=== PATIENT | male | born 1955 | race Caucasian/White ===

== ENCOUNTER 2017-02-27 19:22 | Emergency (ER) | payer BC, OTHER ==
[~2017-02-27] VITALS: Ht 182.9 cm; Wt 71.1 kg
[~2017-02-27 19:22] MED LIST: ASPI325T PO; ATEN-100 PO; CARA1SUS3 PO; LISI10TA PO; PREV30CA36 PO; SIMV5TAB32 PO
[2017-02-27 19:27] VITALS: BP 133/89; PULSE 90; RESP 16; TEMP 98.1; O2SAT 96
[2017-02-27 19:49] VITALS: BP 125/74; PULSE 93; RESP 18; TEMP 98.1; O2SAT 98
[2017-02-27] MEDS ORDERED: ZOCO5TAB PO (19:49)
[2017-02-27] MEDS ORDERED: ATEN50TA PO (19:49)
[2017-02-27] MEDS ORDERED: ASPI325T PO (19:49)
[2017-02-27] MEDS ORDERED: OMEP20TA PO (19:49)
--- NOTE | 2017-02-27 20:14 | PD ---
HPI Chief Complaint: Cardiac Complaint Time Seen by Provider: 20:10 Travel History International Travel<30 days: No Contact w/Intl Traveler<30days: No Traveled to known affect area: No History of Present Illness HPI The patient is a 61-year-old male that has a history of occasional intermittent fibrillation. He states it has been 5 years since he had atrial fibrillation. It started last night, about 20 hours ago. He does not drink alcohol significantly and does not smoke. He has been on the go and losing sleep lately. He is a [employer] patient of Dr. Moon. The patient states that 5 years ago he had atrial fibrillation that lasted a few hours and they gave him "a pill" and a 1 away and he went home. Unfortunately this atrial fibrillation has lasted longer. He denies any chest pain, shortness of breath, syncope or near syncopal episodes. 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 [facility] Past Medical History Atrial Fibrillation: Yes Heart Rhythm Problems: Yes Cardiovascular Problems: Yes High Cholesterol: Yes Diminished Hearing: No Hypertension: Yes Tetanus Vaccination: Unknown Influenza Vaccination: Yes ?: Not Past Surgical History Abdominal Surgery: Yes (RIGHT INGUINAL HERNIA) Other Surgery: Yes (NOSE) Social History Alcohol Use: No Tobacco Use: No Substance Use: No Allergies-Medications (Allergen,Severity, Reaction): Coded Allergies: No Known Allergies (Verified , 02/27/17) Reported Meds & Prescriptions Reported Meds & Active Scripts Active Reported Aspirin 325 Mg Tab 325 Mg PO DAILY Omeprazole 20 Mg Tab 20 Mg PO DAILY Zocor (Simvastatin) 5 Mg Tab 5 Mg PO DAILY Atenolol 50 Mg Tab 50 Mg PO BID Review of Systems Except as stated in HPI: all other systems reviewed are Neg Physical Exam Narrative GENERAL: The patient is alert, oriented 3 in no apparent distress. His vital signs show normal on the repeat vital signs. SKIN: Focused skin assessment warm/dry. HEAD: Atraumatic. Normocephalic. EYES: Pupils equal and round. No scleral icterus. No injection or drainage. ENT: No nasal bleeding or discharge. Mucous membranes pink and moist. NECK: Trachea midline. No JVD. CARDIOVASCULAR: Regular rate and rhythm. No murmur appreciated. RESPIRATORY: No accessory muscle use. Clear to auscultation. Breath sounds equal bilaterally. GASTROINTESTINAL: Abdomen soft, non-tender, nondistended. Hepatic and splenic margins not palpable. MUSCULOSKELETAL: No obvious deformities. No clubbing. No cyanosis. No edema. NEUROLOGICAL: Awake and alert. No obvious cranial nerve deficits. Motor grossly within normal limits. Normal speech. PSYCHIATRIC: Appropriate mood and affect; insight and judgment normal. Data Data Last Documented VS Vital Signs Date Time Temp Pulse Resp B/P Pulse Ox O2 Delivery O2 Flow Rate FiO2 02/27/17 20:22 133/79 140/87 02/27/17 20:17 98 Room Air 02/27/17 20:17 18 02/27/17 19:49 98.1 93 Orders Diltiazem (Cardizem) (02/27/17 20:15) Electrocardiogram (02/27/17 20:15) Ckmb (Isoenzyme) Profile (02/27/17 20:15) Complete Blood Count With Diff (02/27/17 20:15) Comprehensive Metabolic Panel (02/27/17 20:15) Magnesium (Mg) (02/27/17 20:15) Prothrombin Time / Inr (Pt) (02/27/17 20:15) Act Partial Throm Time (Ptt) (02/27/17 20:15) Troponin I (02/27/17 20:15) Ecg Monitoring (02/27/17 20:15) Bilateral Bp Monitoring (02/27/17 20:15) Iv Access Insert/Monitor (02/27/17 20:15) Oximetry (02/27/17 20:15) Oxygen Administration (02/27/17 20:15) Sodium Chloride 0.9% Flush (Ns Flush) (02/27/17 20:15) Chest, Pa & Lat (02/27/17 20:15) CKMB (02/27/17 20:15) CKMB% (02/27/17 20:15) Propafenone (Rythmol) (02/27/17 21:30) Aspirin (Aspirin) (02/27/17 21:45) Labs Laboratory Tests Test 02/27/17 20:15 White Blood Count 8.0 TH/MM3 Red Blood Count 4.86 MIL/MM3 Hemoglobin 14.6 GM/DL Hematocrit 43.3 % Mean Corpuscular Volume 89.0 FL Mean Corpuscular Hemoglobin 30.1 PG Mean Corpuscular Hemoglobin 33.8 % Concent Red Cell Distribution Width 13.5 % Platelet Count 334 TH/MM3 Mean Platelet Volume 9.0 FL Neutrophils (%) (Auto) 68.2 % Lymphocytes (%) (Auto) 22.0 % Monocytes (%) (Auto) 7.5 % Eosinophils (%) (Auto) 1.7 % Basophils (%) (Auto) 0.6 % Neutrophils # (Auto) 5.5 TH/MM3 Lymphocytes # (Auto) 1.8 TH/MM3 Monocytes # (Auto) 0.6 TH/MM3 Eosinophils # (Auto) 0.1 TH/MM3 Basophils # (Auto) 0.0 TH/MM3 CBC Comment DIFF FINAL Differential Comment Prothrombin Time 11.1 SEC Prothromb Time International 1.0 RATIO Ratio Activated Partial 28.1 SEC Thromboplast Time Sodium Level 141 MEQ/L Potassium Level 4.0 MEQ/L Chloride Level 105 MEQ/L Carbon Dioxide Level 28.6 MEQ/L Anion Gap 7 MEQ/L Blood Urea Nitrogen 17 MG/DL Creatinine 0.88 MG/DL Estimat Glomerular Filtration 88 ML/MIN Rate Random Glucose 109 MG/DL Calcium Level 9.0 MG/DL Magnesium Level 2.0 MG/DL Total Bilirubin 0.5 MG/DL Aspartate Amino Transf 23 U/L (AST/SGOT) Alanine Aminotransferase 31 U/L (ALT/SGPT) Alkaline Phosphatase 59 U/L Total Creatine Kinase 112 U/L Creatine Kinase MB 2.3 NG/ML Troponin I LESS THAN 0.02 NG/ML Total Protein 7.2 GM/DL Albumin 3.7 GM/DL MDM Medical Decision Making Medical Screen Exam Complete: Yes Emergency Medical Condition: Yes Medical Record Reviewed: Yes Interpretation(s) The CBC is normal. EKG shows atrial fibrillation with a controlled rate of 89 and no acute change. The coagulation profile is normal. The complete metabolic profile shows a GFR of 88 but is otherwise normal. The cardiac enzymes are normal. Differential Diagnosis Atrial fibrillation, acute coronary syndrome, electrolyte disorder, hypo-/ hyperglycemia, Narrative Course I discussed the patient with Dr. Reid, he states the patient will be adequately anticoagulated on aspirin alone. His INR is 1.0. Dr. Reid of follow-up with the patient tomorrow in his office. He will be prescribed Rythmol 150 mg twice daily and given the first dose here in emergency department. The rate on the atrial fibrillation is controlled with the atenolol. Diagnosis Primary Impression: Atrial fibrillation Additional Instructions: As we discussed, rest and fluids are important. Take an aspirin 325 mg daily and take the Rythmol 150 mg twice daily and follow-up in Dr. Reid's office tomorrow. Call his office tomorrow morning to set up an appointment. Med/Other Pt SpecificInfo: Prescription(s) given Scripts Propafenone 150 Mg [id number] Mg PO q 12h #20 TAB Ref 0 Prov:Kanu Sanchez MD 02/27/17 Disposition: 01 DISCHARGE HOME Condition: Stable Kanu Sanchez MD Feb 27, 2017 20:14
[2017-02-27] MEDS ORDERED: DILTIAZEM HCL 60 MG TAB PO ONE (20:15)
[2017-02-27] MEDS ORDERED: SODIUM CHLORIDE 0.9% FLUSH 10 ML FLUSH IVF PRN (20:15)
[2017-02-27 20:17] VITALS: RESP 18; O2SAT 98
[2017-02-27 20:22] VITALS: BP_SYST 133; BP_SYST 140; BP_DIAS 79; BP_DIAS 87
[2017-02-27 20:29] LABS: AUTOMATED NEUTROPHIL # 5.5 TH/MM3 (1.8-7.7); BASOPHIL % 0.6 % (0.0-2.0); EOSINOPHIL # 0.1 TH/MM3 (0-0.4); EOSINOPHIL % 1.7 % (0.0-4.0); HEMATOCRIT 43.3 % (39.0-51.0); HEMO FLAGS DIFF FINAL; LYMPHOCYTE # 1.8 TH/MM3 (1.0-4.8); MEAN CORPUSCULAR HEMOGLOBIN 30.1 PG (27.0-34.0); MEAN CORPUSCULAR HGB CONC 33.8 % (32.0-36.0); MONO % 7.5 % (0.0-8.0); NEUT % 68.2 % (16.0-70.0); PLATELET COUNT 334 TH/MM3 (150-450); RED BLOOD COUNT 4.86 MIL/MM3 (4.50-5.90); RED CELL DISTRIBUTION WIDTH 13.5 % (11.6-17.2)
[2017-02-27 20:42] LABS: CHLORIDE 105 MEQ/L (98-107); SODIUM (NA) 141 MEQ/L (136-145)
[2017-02-27 20:47] LABS: ANION GAP 7 MEQ/L (5-15); APTT (PATIENT) 28.1 SEC (24.3-30.1); BICARBONATE 28.6 MEQ/L (21.0-32.0); BLOOD UREA NITROGEN 17 MG/DL (7-18); PROTHROMBIN TIME - PATIENT 11.1 SEC (9.8-11.6)
[2017-02-27 20:49] LABS: ALT (GPT) 31 U/L (12-78)
[2017-02-27 20:50] LABS: AST (GOT) 23 U/L (15-37); GLOMERULAR FILTRATION RATE 88 ML/MIN (>89)
[2017-02-27 20:51] LABS: TOTAL BILIRUBIN ADULT 0.5 MG/DL (0.2-1.0)
[2017-02-27 20:52] LABS: ALKALINE PHOSPHATASE 59 U/L (45-117); CREATINE KINASE 112 U/L (39-308)
--- NOTE | 2017-02-27 20:52 | RADHPO ---
EXAM DATE/TIME: 02/27/2017 20:41 [facility] COMPARISON: No previous studies available for comparison. INDICATIONS : Chest pain. MEDICAL HISTORY : Hypertension. A-fib SURGICAL HISTORY : None. ENCOUNTER: Initial ACUITY: 1 day PAIN SCORE: 3/10 LOCATION: Center of chest FINDINGS: PA and lateral views of the chest demonstrate the lungs to be symmetrically aerated without evidence of mass, infiltrate or effusion. The cardiomediastinal contours are unremarkable. Osseous structure s are intact. CONCLUSION: No evidence of acute cardiopulmonary disease. Aidan Kapoor MD on February 27, 2017 at 20:51 Board Certified Radiologist. This report was verified electronically.
[2017-02-27 21:00] VITALS: BP 128/72; PULSE 89; RESP 18; O2SAT 98
[2017-02-27 21:05] LABS: CKMB 2.3 NG/ML (0.5-3.6)
[2017-02-27] MEDS ORDERED: PROPAFENONE HCL 150 MG TAB PO ONE (21:30)
[2017-02-27] MEDS ORDERED: PROP150T PO (21:39)
[2017-02-27] MEDS ORDERED: ASPIRIN 325 MG TAB PO ONE (21:45)
[2017-02-27 22:05] VITALS: BP 124/74; PULSE 88; RESP 18; O2SAT 98
--- NOTE | 2017-02-28 06:56 | EKG ---
Date Performed: 02/27/2017 Time Performed: 19:32:52 PTAGE: 61 years EKG: Atrial fibrillation Possible inferior infarct - age undetermined Abnormal ECG COMPARED TO P RIOR ELECTROCARDIOGRAM, Atrial fibrillation appears new. PREVIOUS TRACING : 09/17/2011 10.16 DOCTOR: Bill Rogers Interpretating Date/Time 02/28/2017 06:54:43
== END 2017-02-27 22:08 | disposition home or self-care (01) ==
LOC: PHED 19:22
DX: I48.91 Unspecified atrial fibrillation (principal); E78.00 Pure hypercholesterolemia, unspecified; I10 Essential (primary) hypertension; R94.31 Abnormal electrocardiogram [ECG] [EKG]
CPT/HCPCS: 71020; 80053; 82550; 82552; 83735; 84484; 85025; 85610; 85730; 93005

== ENCOUNTER 2017-12-18 11:00 | Emergency (ER) | payer BC, OTHER ==
[~2017-12-18] VITALS: Ht 182.9 cm; Wt 74.0 kg
[~2017-12-18 11:00] MED LIST changes: +ASPI-183 PO; -ASPI325T PO; -ATEN-100 PO; +ATEN50TA PO; -CARA1SUS3 PO; +DICL1GEL7 TOPICAL; -LISI10TA PO; +MELO15TA20 PO; +MOBI15TA PO; +OMEP20TA93 PO; -PREV30CA36 PO; +PROP150T PO; -SIMV5TAB32 PO; +ZOCO5TAB PO
[2017-12-18 11:05] VITALS: BP 163/76; PULSE 64; RESP 16; TEMP 97.9; O2SAT 99
[2017-12-18 11:31] LABS: BLOOD, URINE LARGE (NEG); GLUCOSE,URINE NEG (NEG); KETONE, URINE 15 mg/dL (NEG); NITRITE,URINE POS (NEG); PH, URINE 6.5 (5.0-8.5); URINE LEUKOCYTE ESTERASE MOD (NEG)
[2017-12-18 11:36] LABS: BILIRUBIN, URINE NEG (NEG)
[2017-12-18] MEDS ORDERED: SODIUM CHLOR 0.9% 1000 ML INJ 1,000 ML IV ONE (11:37)
[2017-12-18] MEDS ORDERED: SODIUM CHLORIDE 0.9% FLUSH 10 ML FLUSH IVF PRN (11:45)
[2017-12-18 11:49] LABS: URINE COLOR RED (YELLW/STRAW)
[2017-12-18 11:50] LABS: BACTERIA, URINE FEW /hpf; RBC, URINE INNUM /hpf (0-3); SQUAMOUS EPITHELIAL CELL URINE 0-1 /hpf (0-5)
[2017-12-18 11:52] LABS: AUTOMATED NEUTROPHIL # 3.5 TH/MM3 (1.8-7.7); BASOPHIL # 0.1 TH/MM3 (0-0.2); BASOPHIL % 1.8 % (0.0-2.0); EOSINOPHIL # 0.2 TH/MM3 (0-0.4); EOSINOPHIL % 3.3 % (0.0-4.0); HEMATOCRIT 42.9 % (39.0-51.0); HEMOGLOBIN 14.5 GM/DL (13.0-17.0); LYMPH % 18.9 % (9.0-44.0); MEAN CELL VOLUME 90.5 FL (80.0-100.0); MEAN CORPUSCULAR HEMOGLOBIN 30.5 PG (27.0-34.0); MEAN CORPUSCULAR HGB CONC 33.7 % (32.0-36.0); MEAN PLATELET VOLUME 8.4 FL (7.0-11.0); MONO % 8.5 % (0.0-8.0); MONOCYTE # 0.5 TH/MM3 (0-0.9); NEUT % 67.5 % (16.0-70.0); PLATELET COUNT 215 TH/MM3 (150-450); RED BLOOD COUNT 4.74 MIL/MM3 (4.50-5.90); RED CELL DISTRIBUTION WIDTH 12.9 % (11.6-17.2); WHITE BLOOD COUNT 5.3 TH/MM3 (4.0-11.0)
--- NOTE | 2017-12-18 12:26 | PD ---
HPI Chief Complaint: Complaint Time Seen by Provider: 11:31 Travel History International Travel<30 days: No Contact w/Intl Traveler<30days: No Traveled to known affect area: No History of Present Illness HPI 62-year-old male came to the emergency room with history of right flank pain and hematuria that has been going on for past 3 days. Patient says that the hematuria is progressively worsening. Today it was bright red urine. He is able to evacuate his bladder. No history of dysuria. He does have history of kidney stones many years ago. No history of fever or chills. No history of nausea vomiting. Patient currently appears to be comfortable. Vital signs were stable. He is not on any blood thinners. [facility] Past Medical History Narrative Medical Most of his past medical, surgical, social and family history reviewed from the nursing note. Atrial Fibrillation: Yes Heart Rhythm Problems: Yes Cardiovascular Problems: Yes High Cholesterol: Yes Diminished Hearing: No Hypertension: Yes Kidney Stones: Yes Tetanus Vaccination: < 5 Years Influenza Vaccination: Yes Past Surgical History Abdominal Surgery: Yes (RIGHT INGUINAL HERNIA) Tonsillectomy: Yes Other Surgery: Yes (NOSE) Social History Alcohol Use: No Tobacco Use: No Substance Use: No Allergies-Medications (Allergen,Severity, Reaction): Coded Allergies: No Known Allergies (Verified Adverse Reaction, Unknown, 12/18/17) Comments No known drug allergies. Reported Meds & Prescriptions Reported Meds & Active Scripts Active Macrobid (Nitrofurantoin Monoh/Nitrofur Macro) 100 Mg Cap 100 Mg PO BID 10 Days Propafenone (Propafenone HCl) 150 Mg Tab 150 Mg PO Q 12H Reported Aspirin 325 Mg Tab 325 Mg PO DAILY Zocor (Simvastatin) 5 Mg Tab 5 Mg PO DAILY Atenolol 50 Mg Tab 50 Mg PO BID Narrative Medication List of his home medications reviewed from the nursing note. Review of Systems Except as stated in HPI: all other systems reviewed are Neg Genitourinary: Positive: Hematuria, Flank Pain Physical Exam Narrative GENERAL: Awake, alert, no obvious distress SKIN: Focused skin assessment warm/dry. HEAD: Atraumatic. Normocephalic. EYES: Pupils equal and round. No scleral icterus. No injection or drainage. ENT: No nasal bleeding or discharge. Mucous membranes pink and moist. NECK: Trachea midline. No JVD. CARDIOVASCULAR: Regular rate and rhythm. No murmur appreciated. RESPIRATORY: No accessory muscle use. Clear to auscultation. Breath sounds equal bilaterally. GASTROINTESTINAL: Abdomen soft, non-tender, nondistended. Hepatic and splenic margins not palpable. MUSCULOSKELETAL: No obvious deformities. No clubbing. No cyanosis. No edema. NEUROLOGICAL: Awake and alert. No obvious cranial nerve deficits. Motor grossly within normal limits. Normal speech. PSYCHIATRIC: Appropriate mood and affect; insight and judgment normal. Data Data Last Documented VS Orders Orders Urinalysis - C+S If Indicated (12/18/17 11:07) Complete Blood Count With Diff (12/18/17 11:37) Basic Metabolic Panel (Bmp) (12/18/17 11:37) Ct Abd/Pel W/O Iv Contrast (12/18/17 11:37) Ecg Monitoring (12/18/17 11:37) Iv Access Insert/Monitor (12/18/17 11:37) Sodium Chloride 0.9% Flush (Ns Flush) (12/18/17 11:45) Sodium Chlor 0.9% 1000 Ml Inj (Ns 1000 M (12/18/17 11:37) Urine Culture (12/18/17 11:15) Nitrofurantoin Monohyd Macrocr (Macrobid (12/18/17 12:30) Ed Discharge Order (12/18/17 13:13) Labs Laboratory Tests Test 12/18/17 11:15 12/18/17 11:49 12/18/17 12:40 Urine Collection Type VOIDED Urine Color RED Urine Turbidity CLOUDY Urine pH 6.5 Urine Specific [place] 1.022 Urine Protein 300 OR GREATER mg/dL Urine Glucose (UA) NEG mg/dL Urine Ketones 15 mg/dL Urine Occult Blood LARGE Urine Nitrite POS Urine Bilirubin NEG Urine Leukocyte Esterase MOD Urine RBC INNUM /hpf Urine WBC 3-5 /hpf Urine Squamous Epithelial Cells 0-1 /hpf Urine Bacteria FEW /hpf Microscopic Urinalysis Comment CULTURE INDICATED White Blood Count 5.3 TH/MM3 Red Blood Count 4.74 MIL/MM3 Hemoglobin 14.5 GM/DL Hematocrit 42.9 % Mean Corpuscular Volume 90.5 FL Mean Corpuscular Hemoglobin 30.5 PG Mean Corpuscular Hemoglobin Concent 33.7 % Red Cell Distribution Width 12.9 % Platelet Count 215 TH/MM3 Mean Platelet Volume 8.4 FL Neutrophils (%) (Auto) 67.5 % Lymphocytes (%) (Auto) 18.9 % Monocytes (%) (Auto) 8.5 % Eosinophils (%) (Auto) 3.3 % Basophils (%) (Auto) 1.8 % Neutrophils # (Auto) 3.5 TH/MM3 Lymphocytes # (Auto) 1.0 TH/MM3 Monocytes # (Auto) 0.5 TH/MM3 Eosinophils # (Auto) 0.2 TH/MM3 Basophils # (Auto) 0.1 TH/MM3 CBC Comment DIFF FINAL Differential Comment Blood Urea Nitrogen 16 MG/DL Creatinine 0.73 MG/DL Random Glucose 94 MG/DL Calcium Level 8.4 MG/DL Sodium Level 140 MEQ/L Potassium Level 4.2 MEQ/L Chloride Level 108 MEQ/L Carbon Dioxide Level 27.1 MEQ/L Anion Gap 5 MEQ/L Estimat Glomerular Filtration Rate 109 ML/MIN MDM Medical Decision Making Medical Screen Exam Complete: Yes Emergency Medical Condition: Yes Medical Record Reviewed: Yes Differential Diagnosis Bladder tumor, kidney tumor, renal calculi, hemorrhagic cystitis Narrative Course 12:25 PM a CAT scan of the abdomen and pelvis has been done. Awaiting for the report. UA suggestive of UTI with gross mature area. I've given him a dose of Macrobid. Patient will be given a liter of IV fluid bolus. Awaiting for the rest of the blood test results to come back. 12:[address] scan does not show any obstructive calculi. Awaiting for the chemistry which was a redraw. Procedures EKG Prior to Arrival: No Diagnosis Primary Impression: Hemorrhagic cystitis Additional Impression: Nephrolithiasis Referrals: Primary Care Physician Additional Instructions: Take the medication as per the prescription direction. Drink lots of fluid. Return to ER if condition worsens or any other new concerns. Otherwise follow- up with your primary care. Stop taking aspirin for next 2 days. Med/Other Pt SpecificInfo: Prescription(s) given Scripts Nitrofurantoin Monohydrate Macrocrystals (Macrobid) 100 Mg Cap 100 MG PO BID for Infection for 10 Days, #20 CAP 0 Refills Prov: Estuardo Mayes MD 12/18/17 Disposition: 01 DISCHARGE HOME Condition: Stable Estuardo Mayes MD Dec 18, 2017 12:26
[2017-12-18] MEDS ORDERED: NITROFURANTOIN MONOHYD MACROCR 100 MG CAP PO ONE (12:30)
--- NOTE | 2017-12-18 12:32 | RADRPT ---
EXAM DATE/TIME: 12/18/2017 12:02 [facility] COMPARISON: No previous studies available for comparison. INDICATIONS : Right inguinal pain and hematuria. ORAL CONTRAST: No oral contrast ingested. RADIATION DOSE: 10.60 CTDIvol (mGy) MEDICAL HISTORY : Hypercholesterolemia. Hypertension. Renal calculi.Atrial fibrillation. SURGICAL HISTORY : Tonsillectomy. Inguinal hernia repair. ENCOUNTER: Initial ACUITY: 2 days PAIN SCALE: 7/10 LOCATION: Right lower quadrant TECHNIQUE: Volumetric scanning of the abdomen and pelvis was performed. Using automated exposure control and ad justment of the mA and/or kV according to patient size, radiation dose was kept as low as reasonably achievable to obtain optimal diagnostic quality images. DICOM format image data is available electro nically for review and comparison. FINDINGS: Lung spaces are clear. The liver is free of focal defects Multiple granulomas the spleen Pancreas and adrenals unremarkable Right kidney: Nonobstructing 2 mm stone lower pole Left kidney: No renal stone. No calcification along expected course of either the right or the left ureter Mildly prominent prostate with normal appearing bladder No hernia hernia Degenerative changes lumbar spine. CONCLUSION: Nonobstructing small right renal stone No stones along the expected course of either ureter There is no inguinal hernia Aramis Hightower MD FACR on December 18, 2017 at 12:27 Board Certified Radiologist. This report was verified electronically.
[2017-12-18 13:00] LABS: BICARBONATE 27.1 MEQ/L (21.0-32.0); CALCIUM 8.4 MG/DL (8.5-10.1)
[2017-12-18 13:04] LABS: CREATININE 0.73 MG/DL (0.60-1.30)
[2017-12-18] MEDS ORDERED: MACR100C2 PO (13:13)
[2017-12-18 13:27] VITALS: BP 133/79
== END 2017-12-18 13:32 | disposition home or self-care (01) ==
LOC: PHED 11:00
DX: N30.91 Cystitis, unspecified with hematuria (principal); N20.0 Calculus of kidney; I48.91 Unspecified atrial fibrillation; E78.00 Pure hypercholesterolemia, unspecified; I10 Essential (primary) hypertension; Z87.442 Personal history of urinary calculi
CPT/HCPCS: 74176; 80048; 81001; 85025; 87086; 96360; 99284; J7030